=== PATIENT | female | born 1940 ===

== ENCOUNTER → 2017-10-15 | Outpatient (CLI) | payer MEDICARE | END | disposition home or self-care (01) | LOC: PLD 10:36 → LAB SHORT 10:36 | DX: D22.72 Melanocytic nevi of left lower limb, including hip (principal); L57.0 Actinic keratosis | CPT/HCPCS: 88305 ==

== ENCOUNTER 2022-06-06 08:47 | Day surgery (SDC) | payer MEDICARE ==
[~2022-06-06] VITALS: Ht 162.6 cm; Wt 64.2 kg
[2022-06-06] MEDS ORDERED: Amlodipine Bes2.5 MG (09:08)
[2022-06-06] MEDS ORDERED: VALS80 (09:08)
[2022-06-06] MEDS ORDERED: Aspir 8181 MG (09:08)
[2022-06-06] MEDS ORDERED: METF500 (09:08)
--- NOTE | 2022-06-06 09:22 | NUR ---
06/06/22 0922 Jocelin Hatch TETRACAINE TO RIGHT EYE AT 0915 PLEDGET TO RIGHT EYE AT 0920 BY [email or web address].MES
--- NOTE | 2022-06-06 11:01 | NUR ---
06/06/22 1101 Sofie Law PT WALKED OUT STAND BY ASSIST. DAUGHTER AND JOSLYN NUÑEZ
== END 2022-06-06 10:59 | disposition home or self-care (01) ==
LOC: ORSCSDS 08:47
PROVIDERS: Ophthalmology
PROC: 08DJ3ZZ Extraction of Right Lens, Percutaneous Approach (ICD-10-PCS; principal; 2022-06-06 10:00)
DX: H25.13 Age-related nuclear cataract, bilateral (principal); I10 Essential (primary) hypertension; Z86.73 Personal history of transient ischemic attack (TIA), and cerebral infarction without residual deficits; E11.9 Type 2 diabetes mellitus without complications; Z79.82 Long term (current) use of aspirin; Z79.84 Long term (current) use of oral hypoglycemic drugs; Z79.899 Other long term (current) drug therapy
CPT/HCPCS: 82947; A9270; J2001; J2250; J3010; J3301; J7040; V2632

== ENCOUNTER 2024-04-20 06:14 | Day surgery (SDC) | payer OTHER ==
[~2024-04-20] VITALS: Ht 162.6 cm; Wt 132.2 kg
[~2024-04-20 06:14] MED LIST: Amlodipine Bes2.5 MG PO; Aspir 8181 MG; Lactated Ringer's 1,000 ML IV ONE; METF500 PO; Sodium Bicarb 8.4% 1 MEQ/ML 50 ML Vial ONE; VALS80
[2024-04-20] MEDS ORDERED: Lidocaine 1%-Epineph 1:100000 20 ML MDV ONE ×2 (06:22→06:34)
[2024-04-20] MEDS ORDERED: NS 50 ML IV ONE (06:50)
[2024-04-20] MEDS ORDERED: CeFAZolin Sodium 2,000 MG VIAL ONE (06:50)
[2024-04-20] MEDS ORDERED: ALBUTEROL SULFATE HF (06:59)
[2024-04-20] MEDS ORDERED: ALPRAZOLAM0.5 M1 PO (07:00)
[2024-04-20] MEDS ORDERED: VALSARTAN HCTZ PO (07:00)
[2024-04-20] MEDS ORDERED: ROSUVASTATIN CA10 MG PO (07:01)
[2024-04-20] MEDS ORDERED: [UNRECOGNIZED DRUG - CODE] (07:02)
[2024-04-20] MEDS ORDERED: BETA.05TCA (07:02)
[2024-04-20] MEDS ORDERED: Lactated Ringer's 1,000 ML IV ONE (07:15)
--- NOTE | 2024-04-20 07:17 | NUR ---
04/20/24 0717 Nicol Alford 0715: TIMEOUT FOR PRE-OP INJECTION 0716: INJECTION L WRIST 10 CC OF MIX OF 9 CC LIDOCAINE 1% WITH EPI 1:100,000 WITH 1 CC OF SODIUM BICARBONATE.
[2024-04-20 07:50] VITALS: BP 135/61
== END 2024-04-20 07:59 | disposition home or self-care (01) ==
LOC: ORSCSDS 06:14
PROVIDERS: Orthopaedic Surgery
PROC: 01N54ZZ Release Median Nerve, Percutaneous Endoscopic Approach (ICD-10-PCS; principal; 2024-04-20 07:30)
DX: G56.03 Carpal tunnel syndrome, bilateral upper limbs (principal); Z86.73 Personal history of transient ischemic attack (TIA), and cerebral infarction without residual deficits; E11.9 Type 2 diabetes mellitus without complications; I10 Essential (primary) hypertension; Z86.711 Personal history of pulmonary embolism; Z79.82 Long term (current) use of aspirin; Z79.84 Long term (current) use of oral hypoglycemic drugs; Z79.899 Other long term (current) drug therapy
CPT/HCPCS: 82947; J0690; J7120

== ENCOUNTER 2024-06-29 06:12 | Day surgery (SDC) | payer OTHER ==
[~2024-06-29] VITALS: Ht 162.6 cm; Wt 60.8 kg
[~2024-06-29 06:12] MED LIST changes: +ALBUTEROL SULFATE HF; +ALPRAZOLAM0.5 M1 PO; +BETA.05TCA; -Lactated Ringer's 1,000 ML IV ONE; +Lidocaine 1%-Epineph 1:100000 20 ML MDV ONE; +NS 500 ML IV ONE; +ROSUVASTATIN CA10 MG PO; +VALSARTAN HCTZ PO; +[UNRECOGNIZED DRUG - CODE]
[2024-06-29] MEDS ORDERED: CeFAZolin Sodium 2,000 MG VIAL ONE (06:19)
[2024-06-29] MEDS ORDERED: Lidocaine 1%-Epineph 1:100000 20 ML MDV ONE ×2 (06:38→06:43)
[2024-06-29] MEDS ORDERED: FLUTICASONE-SA1 EAC2 INH (06:40)
[2024-06-29] MEDS ORDERED: NS 500 ML IV ONE (06:53)
--- NOTE | 2024-06-29 07:36 | NUR ---
06/29/24 0736 JOAQUIN RICE LOCAL INJECTED O731 LIDOCAINE W/ EPI 1:1000 9ML & SODIUM BICARB 1ML BY DR STRINGER AFTER T/O 8556
[2024-06-29 08:02] VITALS: BP 137/64
== END 2024-06-29 08:15 | disposition home or self-care (01) ==
LOC: ORSCSDS 06:12
PROVIDERS: Orthopaedic Surgery
PROC: 01N54ZZ Release Median Nerve, Percutaneous Endoscopic Approach (ICD-10-PCS; principal; 2024-06-29 08:00)
DX: G56.01 Carpal tunnel syndrome, right upper limb (principal); E11.9 Type 2 diabetes mellitus without complications; I10 Essential (primary) hypertension; Z86.73 Personal history of transient ischemic attack (TIA), and cerebral infarction without residual deficits; Z86.711 Personal history of pulmonary embolism; Z79.82 Long term (current) use of aspirin; Z79.84 Long term (current) use of oral hypoglycemic drugs; Z79.899 Other long term (current) drug therapy; Z87.891 Personal history of nicotine dependence
CPT/HCPCS: 82947; J0690; J7040